=== PATIENT | male | born 1995 | race Two or more races ===

== ENCOUNTER 2019-08-05 13:37 | Emergency (ER) | payer OTHER ==
[2019-08-05] MEDS ORDERED: Lidocaine 1% 10 ML MDV INJECT ONE (13:57)
--- NOTE | 2019-08-05 14:03 | EDM.PDOC ---
ED HPI GENERAL MEDICAL PROBLEM - General Chief Complaint: Laceration Stated Complaint: RIGHT WRIST LAC Time Seen by Provider: 08/05/19 13:48 Source of Information: Reports: Patient, RN Notes Reviewed - History of Present Illness INITIAL COMMENTS - FREE TEXT/NARRATIVE: 24 year old male suffered lac injury dorsal aspect R wrist a short time ago, sharp edge working on a combine. He is up to date with immunizations. no other pain or injury. Right Wrist Pain Score (Numeric/FACES): 9 - Related Data Allergies Allergy/AdvReac Type Severity Reaction Status Date / Time adhesive Allergy Blisters Verified 08/05/19 13:53 rephumposine Allergy Shortness Uncoded 08/05/19 13:53 of Breath Home Meds: Home Meds . [No Known Home Meds] 08/05/19 [History] Past Medical History Respiratory History: Reports: Asthma ED ROS GENERAL - Review of Systems Review Of Systems: See Below Constitutional: Reports: No Symptoms HEENT: Reports: No Symptoms Respiratory: Reports: No Symptoms Cardiovascular: Reports: No Symptoms GI/Abdominal: Reports: No Symptoms Musculoskeletal: Reports: Other (lac R wrist) Neurological: Denies: Numbness, Tingling, Weakness ED EXAM, SKIN/RASH Exam: See Below General Appearance: Alert, No Apparent Distress Head: Atraumatic Neck: Supple Respiratory/Chest: No Respiratory Distress, Lungs Clear, Normal Breath Sounds Extremities: Other (1.5 cm lac dorsal aspect of r wrist) Neurological: Alert, Oriented, No Motor/Sensory Deficits ED SKIN PROCEDURES - Laceration/Wound Repair Right Dorsal Wrist Appearance: Linear Distal NVT: Neuro & Vascular Intact Anesthetic Type: Local Local Anesthesia - Lidocaine (Xylocaine): 1% Plain Skin Prep: Saline Exploration/Debridement/Repair: Wound Explored Lac/Wound length In cm: 1.5 Suture Size: 3-0 Suture Type: Nylon Suture Size: 3-0 # of Sutures: 4 Course - Vital Signs Last Recorded V/S: Last Vital Signs Temp 97.2 F 08/05/19 13:48 Pulse 107 H 08/05/19 13:48 Resp 20 08/05/19 13:48 BP 131/101 H 08/05/19 13:48 Pulse Ox 96 08/05/19 13:48 - Orders/Labs/Meds Meds: Medications Discontinued Medications Generic Name Dose Route Start Last Admin Trade Name Freq PRN Reason Stop Dose Admin Lidocaine HCl 10 ml 08/05/19 13:57 Xylocaine 1% INJECT 08/05/19 13:58 ONETIME ONE Departure - Departure Time of Disposition: 14:25 Disposition: Home, Self-Care 01 Condition: Fair Clinical Impression: Laceration of wrist Qualifiers: Encounter type: initial encounter Laterality: right Qualified Code(s): S61.511A - Laceration without foreign body of right wrist, initial encounter - Discharge Information Referrals: PCP,None [Primary Care Provider] - Forms: ED Department Discharge Additional Instructions: laceration care instr. Stitches out in about 10 days, have rechecked any sign of infection.
== END 2019-08-05 14:35 | disposition home or self-care (01) ==
LOC: JD.ED 13:37
DX: S61.511A Laceration without foreign body of right wrist, initial encounter (principal); Z91.048 Other nonmedicinal substance allergy status; Z88.8 Allergy status to other drugs, medicaments and biological substances; W26.8XXA Contact with other sharp object(s), not elsewhere classified, initial encounter
CPT/HCPCS: 12001; 99282; J2001